=== PATIENT | male | born 1985 | race Two or more races ===

== ENCOUNTER 2023-10-27 13:25 | Inpatient (IN) | payer MEDICAID, OTHER ==
[~2023-10-27] VITALS: Ht 167.6 cm; Wt 91.5 kg
[2023-10-27 14:28] LABS: Basophils # (auto) 0 10 ^3/uL (0-0.2); Basophils % (auto) 0.3 % (0.0-2.0); Eosinophils # (auto) 0 10 ^3/uL (0-0.8); Eosinophils % (auto) 0.3 % (0.0-7.0); Hematocrit 38.9 % (41.0-53.0); Hemoglobin 13.9 g/dL (13.5-17.5); Lymphocytes # (auto) 1.8 10 ^3/uL (0.4-5.4); Lymphocytes % (auto) 20.3 % (10.0-50.0); Mean Corpuscular Hemoglobin 31.9 pg (28.0-32.0); Mean Corpuscular Hgb Conc. 35.7 g/dL (32.0-36.0); Mean Corpuscular Volume 89.4 fL (80.0-100.0); Monocytes # (auto) 0.4 10 ^3/uL (0-1.3); Monocytes % (auto) 4.5 % (0.0-12.0); Neutrophils # (auto) 6.7 10 ^3/uL (1.6-8.6); Neutrophils % (auto) 74.6 % (37.0-80.0); Red Blood Cells 4.35 10^6/uL (4.5-5.90); Red Cell Distribution Width 14.2 % (11.8-14.3)
[2023-10-27 14:43] VITALS: PULSE 97; O2SAT 97
[2023-10-27 14:51] LABS: Alanine Aminotransferase 21 U/L (7-40); Alkaline Phosphatase 109 U/L (46-116); Anion Gap 10 (5-15); BUN/Creatinine Ratio 8.2 (10.0-20.0); Blood Urea Nitrogen 6 mg/dL (9-23); Carbon Dioxide 24 mmol/L (20-30); Chloride 110 mmol/L (98-107); Glucose 110 mg/dL (74-106); Potassium 3.5 mmol/L (3.5-5.1); Sodium 144 mmol/L (136-145)
[2023-10-27 14:52] LABS: Aspartate Aminotransferase 18 U/L (13-40); Bilirubin, Total 0.6 mg/dL (0.2-1.0)
[2023-10-27] MEDS: levETIRAcetam 1000 mg/100ml 100 ML IV ONE (15:50)
[2023-10-27] MEDS: SODIUM CHLORIDE 0.9% 1,000 ML IV ONE (15:51)
[2023-10-27] MEDS ORDERED: LORazepam 2MG/ML-1ML VIAL IV PRN (18:30)
[2023-10-27] MEDS ORDERED: DOCUSATE SOD 100 MG CAP PO PRN (18:30)
[2023-10-27] MEDS ORDERED: ONDANSETRON HCL 4 MG/2 ML VIAL IV PRN (18:30)
[2023-10-27] MEDS ORDERED: NITROGLYCERIN 0.4 MG SL TAB SL PRN (18:30)
[2023-10-27] MEDS ORDERED: MORPHINE SULFATE INJ 2 MG/ml SYRG IV PRN ×2 (18:30)
[2023-10-27] MEDS: SODIUM CHLORIDE 0.9% 1,000 ML IV SCH (18:50)
[2023-10-27 20:00] VITALS: PULSE 76; RESP 17; O2SAT 98
[2023-10-27] MEDS: levETIRAcetam 500 mg/100ml 100 ML IV SCH (23:27)
[2023-10-28] MEDS ORDERED: APIX5TAB PO ×2 (00:18→16:15)
[2023-10-28 04:28] LABS: Amphetamine Screen, Urine Neg (NEGATIVE); Barbiturate Scree,Urine Neg (NEGATIVE); Benzodiazephine Screen, Urine Pos (NEGATIVE); Cocaine Screen, Urine Neg (NEGATIVE)
[2023-10-28 04:29] LABS: Cannabinoid Screen, Urine Neg (NEGATIVE); Opiate Scree,Urine Neg (NEGATIVE); Phencyclidine Screen, Urine Neg (NEGATIVE)
[2023-10-28 04:32] LABS: Urine Bacteria FEW /hpf (None Seen); Urine Blood Negative /uL (Negative); Urine Clarity Clear (Clear); Urine Color Colorless (Yellow); Urine Mucus FEW (None Seen); Urine Protein, UAD Negative (Negative); Urine Specific Gravity 1.008 (1.001-1.035); Urine Sperm PRESENT /hpf (None Seen); Urine Urobilinogen Normal (Negative); Urine WBC 2 /hpf (0 - 3); Urine pH 6.5 (5.0-9.0)
[2023-10-28 05:00] VITALS: BP 146/71; PULSE 72; RESP 18; TEMP 97.5; O2SAT 95
[2023-10-28 05:06] LABS: Basophils # (auto) 0 10 ^3/uL (0-0.2); Basophils % (auto) 0.4 % (0.0-2.0); Eosinophils # (auto) 0.2 10 ^3/uL (0-0.8); Eosinophils % (auto) 2.1 % (0.0-7.0); Hematocrit 35.6 % (41.0-53.0); Hemoglobin 12.6 g/dL (13.5-17.5); Lymphocytes # (auto) 2.5 10 ^3/uL (0.4-5.4); Lymphocytes % (auto) 30.1 % (10.0-50.0); Mean Corpuscular Hemoglobin 31.4 pg (28.0-32.0); Mean Corpuscular Hgb Conc. 35.3 g/dL (32.0-36.0); Monocytes # (auto) 0.5 10 ^3/uL (0-1.3); Monocytes % (auto) 5.9 % (0.0-12.0); Neutrophils # (auto) 5.1 10 ^3/uL (1.6-8.6); Neutrophils % (auto) 61.5 % (37.0-80.0); Nucleated Red Blood Cells % 0.1 %; Red Blood Cells 4.01 10^6/uL (4.5-5.90); White Blood Cell 8.4 10^3/uL (4.4-10.8)
[2023-10-28 05:11] LABS: Alanine Aminotransferase 17 U/L (7-40); Alkaline Phosphatase 86 U/L (46-116); Anion Gap 6 (5-15); Aspartate Aminotransferase 11 U/L (13-40); BUN/Creatinine Ratio 8.5 (10.0-20.0); Blood Urea Nitrogen 6 mg/dL (9-23); Calcium 9.1 mg/dL (8.7-10.4); Carbon Dioxide 27 mmol/L (20-30); Chloride 111 mmol/L (98-107); Glucose 109 mg/dL (74-106); Potassium 3.8 mmol/L (3.5-5.1); Sodium 144 mmol/L (136-145)
[2023-10-28 05:12] LABS: Bilirubin, Total 0.7 mg/dL (0.2-1.0); Total Protein 5.8 g/dL (5.7-8.2)
[2023-10-28 09:00] VITALS: BP 134/85; PULSE 67; RESP 20; TEMP 98.1; O2SAT 96
[2023-10-28 13:00] VITALS: BP 140/96; PULSE 86; RESP 20; TEMP 98.1; O2SAT 97
[2023-10-28 15:49] VITALS: BP 141/98; PULSE 89; RESP 18; TEMP 98.4; O2SAT 97
[2023-10-28 17:00] VITALS: BP 139/92; PULSE 88; RESP 20; TEMP 97.9; O2SAT 96
[2023-10-28 21:00] VITALS: BP 148/97; PULSE 98; RESP 20; TEMP 98; O2SAT 97
[2023-10-28] MEDS: APIXABAN 5 MG TAB PO SCH (22:13)
[2023-10-29 01:00] VITALS: BP 127/86; PULSE 89; RESP 20; TEMP 98; O2SAT 99
[2023-10-29 05:00] VITALS: BP 131/87; PULSE 79; RESP 20; TEMP 98; O2SAT 99
[2023-10-29 08:05] VITALS: O2SAT 97
[2023-10-29 08:06] LABS: RPR Non Reactive (Non Reactive)
[2023-10-29] MEDS ORDERED: APIX5TAB PO (09:22)
[2023-10-29 09:46] VITALS: BP 107/58; PULSE 77; RESP 22; TEMP 98; O2SAT 99
[2023-10-29 13:00] VITALS: BP 141/87; PULSE 95; RESP 18; TEMP 97.9; O2SAT 96
[2023-10-31 10:21] LABS: Hepatitis B Core Total AB Negative (Negative)
[2023-10-31 12:08] LABS: Hepatitis A Total Antibody Positive (Negative); Hepatitis B Surface Antibody Positive (Negative); Hepatitis B Surface Antigen Negative (Negative)
[2023-10-31 12:19] LABS: Hepatitis C Antibody Reactive (Negative)
== END 2023-10-29 13:40 | disposition home or self-care (01) | DRG 53 ==
LOC: ER 13:25 → WEST WING 18:29 → OVERFLOW 18:29 → WEST WING 21:20
PROVIDERS: ADMIT Internal Medicine Pulmonary Disease; ATTEND Internal Medicine Pulmonary Disease
DX: R56.9 Unspecified convulsions (principal); I82.432 Acute embolism and thrombosis of left popliteal vein; F15.23 Other stimulant dependence with withdrawal; Z86.19 Personal history of other infectious and parasitic diseases
CPT/HCPCS: 36415; 70450; 71045; 80053; 80307; 81001; 82550; 82962; 84484; 85025; 86592; 86703; 86704; 86706; 86708; 86803; 87340; 93005; 93970; G0378